=== PATIENT | male | born 1965 | race Caucasian/White ===

== ENCOUNTER 2017-03-22 11:50 | Day surgery (SDC) | payer OTHER, MEDICARE ==
[~2017-03-22] VITALS: Ht 180.3 cm; Wt 98.0 kg
[~2017-03-22 11:50] MED LIST: 0.9% Sodium Chloride 1,000 ML IV SCH; OXYC5CAP4 PO; ROPI1TAB2 PO; Sodium Chloride LOK Flush 10 mL Syringe IV PRN; fentaNYL-PF 50 mCg/mL 2 mL Inj IVPUSH PRN
[2017-03-22 12:42] VITALS: BP 133/90; PULSE 60; RESP 16; O2SAT 98
[2017-03-22 13:54] VITALS: BP 127/72; PULSE 61; RESP 14; O2SAT 97
[2017-03-22 14:06] VITALS: BP 127/72; PULSE 68; RESP 14; O2SAT 97
--- NOTE | 2017-03-22 14:37 | ENDO ---
[address] [address] ENDOSCOPY PROCEDURE PATIENT: SUZE FIERRO : 1965 MR#: [id number] ADMIT: 03/22/2017 JOB ID: [id number] PROCEDURE: Colonoscopy. INDICATION: Screening. Patient's ASA classification is two. Mallampati score is two. MEDICATIONS: Versed 5 mg, Fentanyl 100 mcg INSTRUMENT USED: PCF H 190 DL PREPARATION QUALITY: Poor. PROCEDURE DETAILS: After informed consent was obtained, the patient was brought into the GI suite, where he was placed on oxygen via nasal cannula and monitored with continuous pulse oximeter, telemetry, and blood pressure monitoring. A time-out was performed, then he was placed in the left lateral decubitus position and medications were administered for sedation. Digital rectal exam was performed, which was unremarkable. The colonoscope was then inserted into the rectum and advanced under direct visualization to the cecum, which was identified by the presence of the ileocecal valve and appendiceal orifice. Once the cecum was reached, the colonoscope was withdrawn back into the rectum as the mucosa and lumen were examined. In the rectum, retroflexion was performed. Following retroflexion, the remaining air in the rectum was suctioned and the procedure was completed. FINDINGS: The prep throughout the entire colon was poor. There was adherent stool to the mucosa extending from the sigmoid colon to the cecum. No large lesions seen, however smaller polyps may have been missed. IMPRESSION: Poor prep. RECOMMENDATIONS: Repeat colonoscopy with a two-day prep. COMPLICATIONS: None, ESTIMATED BLOOD LOSS: Zero.
== END 2017-03-22 23:59 | disposition home or self-care (01) ==
LOC: END 11:50
PROVIDERS: ATTEND Internal Medicine Gastroenterology
DX: Z12.11 Encounter for screening for malignant neoplasm of colon (principal)
CPT/HCPCS: G0121; G0500; J2250; J3010; J7030